=== PATIENT | male | born 1950 | race Asian ===

== ENCOUNTER 2023-10-31 08:54 | Inpatient (IN) | payer OTHER ==
[~2023-10-31] VITALS: Ht 165.1 cm; Wt 43.5 kg
[2023-10-31] MEDS ORDERED: DEXTROSE 50%-WATER 25 GM/50 ML SYRINGE IVP ONE (09:00)
[2023-10-31] MEDS ORDERED: GLUCAGON,HUMAN RECOMBINANT 1 MG VIAL IM ONE (09:00)
[2023-10-31 09:16] LABS: BASOPHILS % (AUTO) 0.3 % (0.0-2.0); EOSINOPHILS % (AUTO) 0 % (1.0-6.0); HEMOGLOBIN 11.8 g/dL (13.5-17.5); LYMPHOCYTES # (AUTO) 1.1 K/uL (1.0-4.8); LYMPHOCYTES % (AUTO) 6.3 % (22.0-44.0); MEAN CORPUSCULAR HEMOGLOBIN 32.5 pg (26.0-34.0); MEAN CORPUSCULAR HGB CONC 31.1 G/dL (31.0-37.0); MEAN CORPUSCULAR VOLUME 105 fL (80-100); MONOCYTES # (AUTO) 0.4 K/uL (0.1-1.0); MONOCYTES % (AUTO) 2.2 % (2.0-9.0); NEUTROPHILS # (AUTO) 16.6 K/uL (1.8-7.7); PLATELET COUNT (AUTO) 325 K/uL (150-450); RED BLOOD CELL COUNT(AUTO) 3.63 MIL/uL (4.50-5.90); RED CELL DISTRIBUTION WIDTH 25.7 % (11.5-14.5); WHITE BLOOD COUNT (AUTO) 18.2 K/uL (4.5-11.0)
[2023-10-31 09:24] LABS: NEUTROPHILS % (AUTO) 91.2 % (40.0-70.0)
[2023-10-31 09:25] LABS: RBC MORPHOLOGY COMMENT ABNORMAL RBC MORPH
[2023-10-31] MEDS ORDERED: DEXTROSE 5%-0.9% SODIUM CHL 1,000 ML IV ONE (09:30)
[2023-10-31 09:36] LABS: CALCIUM, TOTAL 8.2 mg/dL (8.8-10.5); CREATININE 5.74 mg/dL (0.60-1.30); POTASSIUM 5.8 mmol/L (3.5-5.1)
[2023-10-31 09:42] LABS: ALBUMIN 2.8 g/dL (3.4-5.0); BILIRUBIN,TOTAL 0.9 mg/dL (0.1-1.0); TOTAL PROTEIN, SERUM 7.2 g/dL (6.4-8.2)
[2023-10-31] MEDS ORDERED: MORPHINE SULFATE 2 MG/ML SYRINGE IVP ONE (10:15)
[2023-10-31] MEDS ORDERED: ACETAMINOPHEN 325 MG TABLET PO PRN ×2 (10:45→12:00)
[2023-10-31] MEDS ORDERED: ONDANSETRON HCL 4 MG/2 ML VIAL IVP PRN ×2 (10:45→12:00)
[2023-10-31 11:44] VITALS: BP 111/60; PULSE 78; RESP 16; TEMP 98.8
[2023-10-31] MEDS ORDERED: ALBUTEROL SULFATE 2.5 MG/0.5 ML NEB SOLUTION NEB PRN (12:00)
[2023-10-31] MEDS ORDERED: BISACODYL 10 MG RECTAL RECTAL SUPPOSITORY PR PRN (12:00)
[2023-10-31] MEDS ORDERED: MAGNESIUM HYDROXIDE SUSPENSION 30 ML UDCUP PO PRN (12:00)
[2023-10-31] MEDS ORDERED: HYDROCODONE/ACETAMINOPHEN 5-325 MG TABLET PO PRN (12:00)
[2023-10-31] MEDS ORDERED: ZOLPIDEM TARTRATE 5 MG TABLET PO PRN (12:00)
[2023-10-31] MEDS ORDERED: DEXTROSE 5%-0.45% SODIUM CHL 1,000 ML IV ONE (12:00)
[2023-10-31 12:35] LABS: GLUCOMETER DEV NAME(LOC) ER.6; GLUCOSE,POINT OF CARE < 10 MG/DL (70-110)
[2023-10-31 12:35] LABS: GLUCOMETER DEV NAME(LOC) ER.6; GLUCOSE,POINT OF CARE 159 MG/DL (70-110)
[2023-10-31] MEDS ORDERED: INFLUENZA VIRUS VACCINE QVS 2023-24 (6MO+)/PF 60 MCG/0.5 ML SYRINGE IM. ONE (14:45)
[2023-10-31] MEDS ORDERED: PNEUMOCOCCAL VACCINE POLYVALENT 0.5 ML SYRINGE [PPSV23] IM. ONE (14:45)
[2023-10-31 15:18] VITALS: BP 105/63; PULSE 82; RESP 18
[2023-10-31] MEDS: HEPARIN SODIUM,PORCINE 5,000 UNITS/ML VIAL SQ SCH (16:47)
[2023-10-31] MEDS: DEXTROSE 50%-WATER 25 GM/50 ML SYRINGE IVP PRN (17:15)
[2023-10-31] MEDS: MORPHINE SULFATE 2 MG/ML SYRINGE IVP PRN (17:22)
[2023-10-31 19:11] LABS: GLUCOMETER DEV NAME(LOC) 5N.2C; GLUCOSE,POINT OF CARE 51 MG/DL (70-110)
[2023-10-31 19:11] LABS: GLUCOMETER DEV NAME(LOC) 5N.2C; GLUCOSE,POINT OF CARE 65 MG/DL (70-110)
[2023-10-31 19:33] VITALS: BP 147/77; PULSE 73; RESP 24; TEMP 94.7
[2023-10-31] MEDS: DOCUSATE SODIUM 100 MG CAPSULE PO SCH (21:20)
[2023-10-31 23:18] VITALS: BP 101/50; PULSE 68; RESP 20; TEMP 94.1
[2023-11-01] MEDS: HEPARIN SODIUM,PORCINE 5,000 UNITS/ML VIAL SQ SCH ×2 (01:10→09:37)
[2023-11-01] MEDS: MORPHINE SULFATE 2 MG/ML SYRINGE IVP PRN (02:49)
[2023-11-01 05:13] VITALS: BP 118/67; PULSE 68; RESP 20; TEMP 96.2
[2023-11-01 05:56] LABS: GLUCOMETER DEV NAME(LOC) 5N.2C; GLUCOSE,POINT OF CARE 78 MG/DL (70-110)
[2023-11-01] MEDS: DEXTROSE 50%-WATER 25 GM/50 ML SYRINGE IVP PRN (06:37)
[2023-11-01 07:16] VITALS: BP 181/88; PULSE 181; PULSE 61; RESP 22; TEMP 96
[2023-11-01] MEDS ORDERED: DEXTROSE 5%-0.45% SODIUM CHL 1,000 ML IV ONE (07:45)
[2023-11-01 08:48] LABS: BASOPHILS % (AUTO) 0.2 % (0.0-2.0); EOSINOPHILS % (AUTO) 0 % (1.0-6.0); HEMATOCRIT 36.4 % (41-53); HEMOGLOBIN 11.5 g/dL (13.5-17.5); LYMPHOCYTES # (AUTO) 0.4 K/uL (1.0-4.8); LYMPHOCYTES % (AUTO) 1.7 % (22.0-44.0); MEAN CORPUSCULAR HGB CONC 31.7 G/dL (31.0-37.0); MEAN CORPUSCULAR VOLUME 104 fL (80-100); MONOCYTES # (AUTO) 0.5 K/uL (0.1-1.0); MONOCYTES % (AUTO) 2.3 % (2.0-9.0); PLATELET COUNT (AUTO) 281 K/uL (150-450); RED BLOOD CELL COUNT(AUTO) 3.49 MIL/uL (4.50-5.90); WHITE BLOOD COUNT (AUTO) 22.9 K/uL (4.5-11.0)
[2023-11-01 08:56] LABS: GLUCOMETER DEV NAME(LOC) 5S.2C; GLUCOSE,POINT OF CARE 60 MG/DL (70-110)
[2023-11-01 08:56] LABS: GLUCOMETER DEV NAME(LOC) 5S.2C; GLUCOSE,POINT OF CARE 43 MG/DL (70-110)
[2023-11-01 08:56] LABS: GLUCOMETER DEV NAME(LOC) 5S.2C; GLUCOSE,POINT OF CARE 63 MG/DL (70-110)
[2023-11-01] MEDS: DOCUSATE SODIUM 100 MG CAPSULE PO SCH (09:00)
[2023-11-01] MEDS ORDERED: PANTOPRAZOLE SODIUM 40 MG DR TABLET PO SCH (09:00)
[2023-11-01 09:01] LABS: NEUTROPHILS % (AUTO) 95.8 % (40.0-70.0)
[2023-11-01 09:26] LABS: CALCIUM, TOTAL 7.6 mg/dL (8.8-10.5); CREATININE 5.57 mg/dL (0.60-1.30); POTASSIUM 4.9 mmol/L (3.5-5.1)
[2023-11-01 11:11] VITALS: BP 132/62; PULSE 87; RESP 22; TEMP 97
[2023-11-01 12:01] LABS: GLUCOMETER DEV NAME(LOC) 5S.1B; GLUCOSE,POINT OF CARE 142 MG/DL (70-110)
[2023-11-01 12:01] LABS: GLUCOMETER DEV NAME(LOC) 5S.1B; GLUCOSE,POINT OF CARE < 10 MG/DL (70-110)
[2023-11-01] MEDS ORDERED: DEXTROSE 5%-WATER 1,000 ML IV SCH (13:15)
[2023-11-01 15:31] VITALS: BP 106/75; PULSE 75; RESP 20; TEMP 95
== END 2023-11-01 17:40 | disposition short-term general hospital (02) | DRG 640 ==
LOC: EMS 09:18 → 5S 10:38
PROVIDERS: ADMIT Internal Medicine; ATTEND Internal Medicine
DX: E16.2 Hypoglycemia, unspecified (principal); G93.41 Metabolic encephalopathy; J96.01 Acute respiratory failure with hypoxia; E87.0 Hyperosmolality and hypernatremia; N17.9 Acute kidney failure, unspecified; E87.20 Acidosis, unspecified; R65.10 Systemic inflammatory response syndrome (SIRS) of non-infectious origin without acute organ dysfunction; C11.9 Malignant neoplasm of nasopharynx, unspecified; I10 Essential (primary) hypertension; E87.5 Hyperkalemia; Z66 Do not resuscitate; D72.829 Elevated white blood cell count, unspecified; M10.9 Gout, unspecified
CPT/HCPCS: 71045; 80048; 80053; 82948; 82962; 85025; 93005; 99291; J1644; J2270; J7042; 36415-L1; 36415-TC